=== PATIENT | female | born 1965 | race Caucasian/White ===

== ENCOUNTER 2017-01-10 08:01 | Day surgery (SDC) | payer OTHER ==
[~2017-01-10] VITALS: Ht 154.9 cm; Wt 93.0 kg
[~2017-01-10 08:01] MED LIST: ALBU8.5H2 INHALATION; BENZ-12 PO; CeFAZolin Inj 2 GM in IV Premix 1 EACH IV ONE; FLUO20TA28 PO; GABA-500 PO; GABA-502 PO; IBUP400T22 PO; KEN25CR TP; OMEP20CA11 PO
[2017-01-10] MEDS ORDERED: Glycopyrrolate 0.2 MG/ML 1mL Inj ONE (08:02)
[2017-01-10] MEDS ORDERED: Dexamethasone 4 mg/mL Inj ONE (08:02)
[2017-01-10] MEDS ORDERED: MetoCLOpramide 5 mg/mL 2 mL Inj ONE (08:02)
[2017-01-10] MEDS ORDERED: Ketamine 10 mg/mL 20 mL Inj ONE (08:02)
[2017-01-10] MEDS ORDERED: Propofol 10,000 mCg/mL 20 mL Inj ONE (08:02)
[2017-01-10] MEDS ORDERED: Ondansetron 2 mg/mL 2 mL Inj ONE (08:02)
[2017-01-10] MEDS: Lactated Ringer's 1,000 ML IV SCH ×2 (08:15→09:50)
[2017-01-10 08:35] VITALS: BP 118/59; PULSE 64; RESP 16; O2SAT 97
--- NOTE | 2017-01-10 09:12 | PCM.HPANE ---
Patient Data Date of Service: Jan 10, 2017 Surgeon Admitting Provider: Attending Provider:Jayme Lopez DPM Primary Care Physician:Linette Boles MD Other Provider:Joseph Abbott Anesthesia Reason for Visit Hallux Limitus Right Foot Ht/WT & BMI Height (Feet): 5 Height (Inches): 1 Weight (Kilograms): 93 Body Mass Index 38.00 Allergies Coded Allergies: No Known Allergies (Unverified , 01/08/17) Past Anesthesia History Anesthesia History: Positive for:: Anesthesia Reactions (PONV), Denies:: Fam Anesthesia Reaction, Fam Malignant Hypertherm, Malignant Hyperthermia Diabetes History Hx Diabetes?: No MRSA MRSA: No Medications Hypertension Medication: No Home Meds Incl Beta Sheila: No Reported Medications Fluoxetine 20 Mg Xolulp31 Mg PO DAILY Ref 0 01/08/17 Gabapentin 300 Mg Inxqwxr092 Mg PO QPM Ref 0 01/08/17 Gabapentin 100 Mg Sdykwpq157 Mg PO QAM 30 Days Ref 0 01/08/17 Albuterol HFA (Proair HFA)8.5 Gm Hfa.aer.ad2 Puffs INHALATION Q4H #1 INHALER 01/08/17 Triamcinolone Acet (Triamcinolone Acetonide Cream)1 Applic/0.25 Gm Cr1 Applic TP BID #60 GM Ref 0 0.1% 01/08/17 Ibuprofen 400 Mg Cuxtcu602 Mg PO Q4H PRN For Pain Ref 0 01/08/17 Discontinued Reported Medications Benzonatate (Tessalon Perle)100 Mg Vdhvvrw363 Mg PO TID PRN For Cough 01/08/17 Omeprazole 20 Mg Capsule.dr20 Mg PO DAILY Ref 0 01/08/17 Acetaminphen-Expunged Drug, Do Not Renew! 325 Mg Fymffd615 Mg PO DAILY 04/28/13 [Albuterol] No Conflict Check2 Puffs INH PRN 04/28/13 Sulfamethoxazole/Trimethoprim (Sulfamethoxazole-TMP DS)1 Each Tablet1 Tab PO BID 04/26/13 Omeprazole-Expunged Drug, Do Not Renew! 20 Mg Capsule.dr20 Mg PO DAILYAC 04/25/13 IBUPROFEN-Expunged Drug, Do Not Renew! 200 Mg Pdnfsk338 Mg PO Q4 PRN 04/25/13 History History of ENT Problems?: No HEENT History: Denies:: Dysphagia Hearing Problem Sinus Problem Denture Type: None Teeth Condition: Within Normal Limits Hx of Heart Problems?: No Cardiovascular History: Denies:: Cardiac Surgery Chest Pain Congestive Heart Failure Heart Murmur Hypertension Irregular Heartbeat Pacemaker Thrombophlebitis Hx of Respiratory Problem?: Yes Respiratory History: Positive for:: Asthma (albuterol 1 wk ago using daily - not typically so frequent) Dyspnea (RYAN WHEN SHE WALKS no chest pain accompanied) Use of Inhalers / NEBS Denies:: Cough Emphysema Oxygen Administration Tuberculosis Use of C-PAP Machine Hx Neurologic Problems?: Yes Neurological History: Positive for:: Headaches Denies:: CVA Dizziness Multiple Sclerosis Parkinson's Disease Seizures TIA Other Neurological Pertinent: fibromyalgia Hx of GI Problems?: Yes Gastrointestinal History: Denies:: Gastroesphageal Reflux Hx of Problems?: Yes Genitourinary History: Positive for:: Kidney Stones (S/P RT ESWL) Female Hx: Denies:: Currently (NEG PREG TEST) Problems with Breasts? Skin History: Denies:: History Skin Disorders? Pressure Ulcers Hx Musculoskeletal Problems?: Yes Musculoskeletal History: Positive for:: Musculoskeletal Trauma (HX FX RT FOOT 2012) Denies:: Joint Replacement Hx of Psycho/Social Problems?: No Psycho Social History: Denies:: Anxiety Bipolar Disorder Hx Depression Hx Surgeries?: Yes (SPINE SURGERY,RT ESWL) Hx Any Other Health Problems?: Yes Other History: Positive for:: Hospitalization Denies:: Cancer Endocrine Disease Thyroid Disease Hx Diabetes: No Hx Alcohol Use: NoHx Substance Use: No Smoking Status: Never Smoker Have You Smoked inLast 12 mo: No Stop/Bang Treated for Sleep Apnea?: No Do You Have a CPAP Machine?: No S-Snoring: Do You Snore Loudly: No T-Tired: feel tired, fatigued: Yes O-Obsered: Observed not breath: No P-Blood Pressure: treated: No B- Body Mass Index > 35 kg/m2: Yes A- Age over 50: No N- Neck Large Circumference: No G- Gender Male: No NOEL Total Score: 2 NOEL Risk Assessment: Low Risk, <3 Yes Risk Assessment Category Category 1A: Patient has history of documented sleep apnea, and HAS NOT received any narcotic, sedative or anesthesia administration during this stay. Category 1B: Patient has history of documented sleep apnea, and HAS received any narcotic , sedative or anesthesia administration during this stay Category 2: Patient has SUSPECTED Obstructive Sleep Apnea, and HAS received any narcotic , sedative or anesthesia administration during this stay. Category 3: Patient has SUSPECTED Obstructive Sleep Apnea and HAS NOT received narcotic, sedative or anesthesia administration during this stay. Category 4: Outpatient in Procedural Areas with known sleep apnea or who screen positive for High Risk via the STOP/BANG questionnaire. Exam Exam Vital Signs Vital Signs Date Time Temp Pulse Resp B/P Pulse Ox O2 Delivery O2 Flow Rate FiO2 01/10/17 08:35 36.1 64 16 118/59 97 Room Air General Appearance: Alert, Oriented X3, Cooperative, No Acute Distress HEENT/AIRWAY: MP 3, Neck Movement (FROM), Mouth Opening (3), Other (tmd<3) Lungs: Normal Air Movement Heart: Exam Unremarkable, Regular Rate/Rhythm, Normal S1, Normal S2, No Murmurs /Rubs/Gallops Meds/Labs/Diagnostics Admission Meds Current Medications Lactated Ringer's (Lr) 1,000 ml @ 120 mls/hr Q8H20M IV Last administered on 08:15; Start 01/10/17 at 05:00; Stop 01/10/17 at 13:19 Scopolamine (Transderm-Scop Patch) 1.5 mg ONCE ONCE TOPICAL Last administered on 01/10/17 08:37; Start 01/10/17 at 08:25; Stop 01/10/17 at 08:26; Status UNV Plan Impression Patient chart reviewed, patient interviewed and anesthestic plan with risks, benefits, and alternatives discussed, and informed consent obtained. NPO per Anesth. Guidelines: Yes ASA Physical Status: ASA2 Mod Systemic Disease Anesthetic Plan: TIVA Bene/Risks/Altern/Consents: Yes HP Complete Prior to Induction: Yes Leon Campo MD Jan 10, 2017 09:12
[2017-01-10] MEDS ORDERED: Lactated Ringer's 500 ML IV PRN (09:27)
[2017-01-10] MEDS ORDERED: Lactated Ringer's 1,000 ML IV SCH (09:27)
[2017-01-10] MEDS ORDERED: MetoCLOpramide 5 mg/mL 2 mL Inj IVPUSH PRN (09:30)
[2017-01-10] MEDS ORDERED: fentaNYL-PF 50 mCg/mL 2 mL Inj IVPUSH PRN (09:30)
[2017-01-10] MEDS ORDERED: Ondansetron 2 mg/mL 2 mL Inj IVPUSH PRN (09:30)
[2017-01-10] MEDS ORDERED: Phenylephrine 10,000 mCg/mL Inj IVPUSH PRN (09:30)
[2017-01-10] MEDS ORDERED: EPHEDrine Sulfate 50 mg/mL Inj IVPUSH PRN (09:30)
[2017-01-10] MEDS ORDERED: HYDROmorphone 1 mg/mL Inj IVPUSH PRN (09:30)
[2017-01-10] MEDS ORDERED: Dexamethasone 4 mg/mL Inj IVPUSH PRN (09:30)
[2017-01-10] MEDS ORDERED: Bupivacaine-MPF 0.5% W/EPI 30 mL Inj INFILTRATE ONE (09:50)
[2017-01-10] MEDS ORDERED: HYDROcodone-APAP 5-325 mg Tablet PO PRN (10:40)
--- NOTE | 2017-01-10 10:44 | PCM.PODPO ---
Podiatry Operative Report Date of Service: Jan 10, 2017 Date of Service Jan 10, 2017 Pre Operative Diagnosis Hallux limitus right foot Post Operative Diagnosis Same as preoperative diagnoses Procedure [place] osteotomy of the right first metatarsal phalangeal joint Surgeon Surgeon: Jayme Lopez DPM Assistants: None Indication for Procedure Painful hallux limitus right first metatarsophalangeal joint Findings Mild articular degeneration of the proximal aspect of the first metatarsal head Details of Procedure Patient was identified in the preoperative holding area and all preoperative comorbidities and allergies were identified and thoroughly discussed. The patient was transported into the operating room and placed on the operating room table in the normal supine position. Patient was then prepped and draped in normal aseptic technique. Attention was first paid to the right dorsal first metatarsophalangeal joint. A preoperative block was given of 10 mL half percent Marcaine plain in a Jaramillo first metatarsal base block fashion. A curvilinear incision was made over the dorsomedial aspect of the first metatarsophalangeal joint approximately 6 cm in length with a #15 blade. Once that initially her skin all subcutaneous neurovascular structures were identified and retracted out of the surgical field. Dissection was carried with a Metzenbaum scissor down through subcutaneous tissue to identify the extensor hallucis longus tendon which was retracted laterally. Blunt dissection was carried medially to identify the neurovascular bundle which was retracted out of the surgical field. A #15 blade was then utilized to incise through capsular tissue which was reflected both medially and laterally exposing the first metatarsophalangeal joint and mildly enlarged medial eminence. A sagittal saw was then utilized to resect a small portion of the enlarged medial eminence 10 care to avoid damage to the sagittal groove. A Youngswick type decompression osteotomy was made of the right first metatarsal head with a sagittal saw in the normal technique taking approximately 1-2 mm wafer from the first metatarsal allowing inferior translation of the first metatarsal head. The first metatarsal head was shifted laterally approximately 2 mm to help reduce the minimally enlarged intermetatarsal angle. Temporary fixation was placed with a K wire. 2 #2.0 cortical screws were inserted in the normal surgical fashion perpendicular to the osteotomy site with compression of the osteotomy noted. Intraoperative C-arm x-ray was utilized to verify proper placement of the screw. This wound was ankle was a flush large amounts of normal saline. Deep closure was performed utilizing number 3. 0 Vicryl subcutaneous closure was performed utilizing number 3. 0 Vicryl and subcuticular closure was performed with 4. 0 Vicryl. The wound was then dressed with Steri-Strips sterile 4 x 4 gauze Kerlix and a minimally compressive Zacarias bandage. Postoperatively the patient was given a block consisting of 10 mL half percent Marcaine plain. The patient was awoken by anesthesia and transported out of the operating room. No complications occurred during this procedure. Grafts, Implants: Implants-See Implant Record Complications There were no periprocedural complications identified. Condition Stable Anesthetic Administered: GA Catheters: None Output, Estimated Blood Loss: 20 Blood Admin during surgery: No Surgical Cast or Splint: None Surgical Specimen Removed: No Specimen sent to Pathology: No Post Operative Plan Ice and elevate right lower extremity keep dressing clean dry and intact Partial weightbearing to right heel Dispense surgical shoe Discharged to home when stable Follow-up in 1 week Jayme Lopez DPM Jan 10, 2017 10:44
[2017-01-10 11:02] VITALS: BP 126/65; PULSE 63; RESP 18; O2SAT 98
== END 2017-01-10 23:59 | disposition home or self-care (01) ==
LOC: SAS 08:01
PROVIDERS: ATTEND Podiatrist Foot & Ankle Surgery
DX: M20.5X1 Other deformities of toe(s) (acquired), right foot (principal); J45.909 Unspecified asthma, uncomplicated; E66.3 Overweight; Z68.39 Body mass index [BMI] 39.0-39.9, adult; Z87.442 Personal history of urinary calculi
CPT/HCPCS: 28296; C1713; J0690; J1100; J2250; J2405; J2765; J7120